=== PATIENT | male | born 1995 | race Two or more races ===

== ENCOUNTER 2016-10-10 05:53 | Emergency (ER) | payer OTHER ==
--- NOTE | ~2016-10-10 | CR127 ---
[facility] A Service of [facility] & [facility] RADIOLOGY TEXT RESULTS PATIENT: NAVI SOLARES LOCATION: [facility] : [birth year] UNIT #: [id number] AGE: [address]: GARRETT SANTANA APRN SEX: M ORDER DR: [id number] [facility] [address] [place], [place] [address] [id number] MR#: [id number] Acc #: [id number] NAME: NAVI SOLARES : 1995 SEX: M STUDY DATE/TIME: 10/10/2016 6:24 UNIT: [facility] ROOM: STUDY DESCRIPTION: CR Foot Complete Min 3 View Rt Attending Physician: Garrett Santana Aprn Ordering Physician: Garrett Santana Aprn Primary Care Physician: Primary Care Physician No MEDICAL IMAGING REPORT This report is preliminary unless electronic signature is present EXAM Right foot three-views. HISTORY Trauma. Pain to top of foot after dropping a toolbox on top of foot last night. COMMENT 3 views of the right foot are reviewed. There is a prior study from 03/02/2014. There is soft tissue swelling of the dorsum of the foot consistent with provided history. There is no acute fracture, dislocation, or radiopaque foreign body appreciated. IMPRESSION Soft tissue swelling dorsum of the foot, otherwise negative plain film assessment right foot. Dictated by... Bailee Carter M.D. THIS IS AN ELECTRONICALLY VERIFIED REPORT Bailee Carter M.D. at 10/10/2016 2:51 PM CLARISSA/kira TD: 10/10/2016 08:18 JOB #: [id number] MEDICAL IMAGING REPORT Page 1 of 1 COPY
[~2016-10-10 05:53] MED LIST: ALLEGRA PO; IBUPROFEN600 MG PO; MUCINEX DM1 TAB.SR . PO; SUDAFED PO
== END 2016-10-10 07:19 | disposition home or self-care (01) ==
LOC: CED 05:53
DX: S90.31XA Contusion of right foot, initial encounter (principal); W21.01XA Struck by football, initial encounter; Y92.009 Unspecified place in unspecified non-institutional (private) residence as the place of occurrence of the external cause
CPT/HCPCS: 29540; 73630; 99283